=== PATIENT | male | born 1965 | race Two or more races ===

== ENCOUNTER 2020-08-27 06:40 | Outpatient (CLI) | payer OTHER | END 2020-08-27 23:59 | disposition home or self-care (01) | LOC: EDBD 06:40 → LAB 06:40 | PROVIDERS: ATTEND Orthopaedic Surgery | DX: Z01.812 Encounter for preprocedural laboratory examination (principal); Z20.822 Contact with and (suspected) exposure to COVID-19; M75.122 Complete rotator cuff tear or rupture of left shoulder, not specified as traumatic ==

== ENCOUNTER 2020-08-28 10:12 | Outpatient (CLI) | payer OTHER ==
[2020-08-28 10:41] LABS: BASOPHILS % (AUTO) 0.4 % (0.0-2.0); EOSINOPHILS # (AUTO) 0.1 K/uL (0.0-0.7); EOSINOPHILS % (AUTO) 1.1 % (0.0-7.0); HEMATOCRIT 46.1 % (36.7-47.1); HEMOGLOBIN 16.1 g/dL (12.5-16.3); LYMPHOCYTES # (AUTO) 3.3 K/uL (20.0-40.0); LYMPHOCYTES % (AUTO) 29.9 % (20.5-51.5); MEAN CORPUSCULAR HEMOGLOBIN 30.2 uug (23.8-33.4); MEAN CORPUSCULAR HGB CONC 35 g/dL (32.5-36.3); MEAN CORPUSCULAR VOLUME 86.6 fL (73.0-96.2); MONOCYTES # (AUTO) 0.8 K/uL (2.0-10.0); MONOCYTES % (AUTO) 7.5 % (0.0-11.0); NEUTROPHILS # (AUTO) 6.8 K/uL (1.8-8.9); NEUTROPHILS % (AUTO) 61.1 % (38.5-71.5); PLATELET COUNT (AUTO) 274 K/uL (152-348); RED BLOOD CELL COUNT(AUTO) 5.32 MIL/uL (4.06-5.63); WHITE BLOOD COUNT (AUTO) 11.1 K/uL (3.6-10.2)
[2020-08-28 10:50] LABS: *BILIRUBIN,URIN NEGATIVE (NEGATIVE); *CLARITY,URINE CLEAR (CLEAR); *COLOR,URINE YELLOW (YELLOW); *KETONES,URINE NEGATIVE (NEGATIVE); *UROBILINOGEN,URINE 0.2 E.U./dl (NORMAL); LEUKOCYTE ESTERASE ,URINE NEGATIVE (NEGATIVE); NITRITE, URINE NEGATIVE (NEGATIVE); UGLUCOSE NEGATIVE (NEGATIVE)
[2020-08-28 10:54] LABS: *BLOOD, URINE TRACE (NEGATIVE)
[2020-08-28 10:54] LABS: BILIRUBIN,TOTAL 0.4 mg/dL (0.2-1.0); POTASSIUM 3.5 mmol/L (3.5-5.1); TOTAL PROTEIN, SERUM 8.2 g/dL (6.4-8.2)
[2020-08-28 13:42] LABS: BACTERIA,URINE NONE SEEN /HPF (NONE SEEN); RBC,URINE 0-3 /HPF (0-3); SQUAMOUS EPITHELIAL CELL,UR NONE SEEN /HPF (NONE SEEN); WBC,URINE 0-3 /HPF (0-3)
== END 2020-08-28 23:59 | disposition home or self-care (01) ==
LOC: EDBD → LAB 10:12
PROVIDERS: ATTEND Internal Medicine
DX: Z01.818 Encounter for other preprocedural examination (principal); M75.122 Complete rotator cuff tear or rupture of left shoulder, not specified as traumatic; M19.012 Primary osteoarthritis, left shoulder; I10 Essential (primary) hypertension; E66.01 Morbid (severe) obesity due to excess calories
CPT/HCPCS: 36415; 71045; 85025; 85730; 93005; A4663

== ENCOUNTER 2020-08-30 06:13 | Day surgery (SDC) | payer OTHER ==
[2020-08-30] MEDS ORDERED: GLYCOPYRROLATE 0.2 MG/ML VIAL IJ ONE (06:14)
[2020-08-30] MEDS ORDERED: NEOSTIGMINE METHYLSULFATE 10 MG/10 ML VIAL IM ONE (06:14)
[2020-08-30] MEDS ORDERED: ONDANSETRON 4 MG/2 ML VIAL IV ONE (06:14)
[2020-08-30] MEDS ORDERED: PROPOFOL 200 MG/20 ML BOTTLE IV ONE (06:14)
[2020-08-30] MEDS ORDERED: LIDOCAINE-MPF 2% 5 ML VIAL IJ ONE (06:14)
[2020-08-30] MEDS ORDERED: CEFAZOLIN 1 G VIAL IM ONE (06:14)
[2020-08-30] MEDS ORDERED: EPHEDRINE SULFATE 50 MG/ML AMPUL IM ONE (06:14)
[2020-08-30] MEDS ORDERED: METOCLOPRAMIDE HCL 10 MG/2 ML VIAL IV ONE (06:14)
[2020-08-30] MEDS ORDERED: MIDAZOLAM HCL 2 MG/2 ML VIAL ONE (07:17)
[2020-08-30] MEDS ORDERED: FENTANYL CITRATE 250 MCG/5 ML AMPUL ONE (07:18)
[2020-08-30] MEDS ORDERED: ROCURONIUM BROMIDE 50 MG/5 ML VIAL ONE (07:19)
[2020-08-30] MEDS ORDERED: HYDROMORPHONE 2 MG/1 ML DISP.SYRIN ONE (07:19)
[2020-08-30] MEDS ORDERED: BUPIVACAINE/EPI PF 0.5% 10 ML VIAL ONE (07:54)
[2020-08-30] MEDS ORDERED: POLYMYXIN B SULFATE 500,000 UNITS, BACITRACIN 50,000 UNITS, NORMAL SALINE 20 ML MC ONE (08:00)
[2020-08-30] MEDS ORDERED: FENTANYL CITRATE 100 MCG/2 ML AMPUL ONE (11:33)
[2020-08-30] MEDS ORDERED: TRAMADOL HCL 50 MG TABLET ONE (13:21)
== END 2020-08-30 14:25 | disposition home or self-care (01) ==
LOC: EDBD → DS 06:13
PROVIDERS: ATTEND Orthopaedic Surgery
DX: M75.102 Unspecified rotator cuff tear or rupture of left shoulder, not specified as traumatic (principal); M75.42 Impingement syndrome of left shoulder; M19.012 Primary osteoarthritis, left shoulder; I10 Essential (primary) hypertension; Z79.899 Other long term (current) drug therapy; Z98.890 Other specified postprocedural states
CPT/HCPCS: 23120; 23410; 23415; 23420; C1713; J0690; J1170; J2250; J2405; J2765; J3010 ×2; J3490 ×7; A4649; J7030

== ENCOUNTER 2020-10-11 11:49 | Inpatient (IN) | payer OTHER ==
[~2020-10-11] VITALS: Ht 162.6 cm; Wt 117.9 kg
--- NOTE | 2020-10-11 12:18 | NUR ---
at bedside for assessment
[2020-10-11] MEDS ORDERED: VANCOMYCIN 1G/D5W 200 ML PIGGYBACK IV ONE (12:30)
[2020-10-11] MEDS ORDERED: IV NS 1000 ML 1,000 ML IV ONE (12:30)
[2020-10-11] MEDS ORDERED: MORPHINE SULFATE 4 MG/1 ML DISP.SYRIN IV ONE (12:30)
[2020-10-11] MEDS ORDERED: PIPERACILLIN SODIUM/TAZOBACTAM 3.375 G in IV DEXTROSE 5% 50 ML IV ONE (12:30)
[2020-10-11] MEDS ORDERED: MORPHINE SULFATE 4 MG/1 ML DISP.SYRIN ONE (12:41)
[2020-10-11] MEDS ORDERED: VANCOMYCIN IV 200 ML ONE (12:41)
[2020-10-11] MEDS ORDERED: PIPERACILLIN/TAZOBACTAM/D5W 50 ML IV ONE (12:41)
[2020-10-11] MEDS ORDERED: IOHEXOL 300MG/ML 100 ML INFUS..BTL ONE (12:44)
[2020-10-11] MEDS ORDERED: IV NORMAL SALINE 250 ML IV ONE (12:44)
[2020-10-11] MEDS ORDERED: SWABABLE VALVE TRANSFER SET EA MC ONE (12:44)
--- NOTE | 2020-10-11 13:11 | NUR ---
IV place in left hand 20 g
[2020-10-11 13:27] LABS: BASOPHILS # (AUTO) 0.2 K/uL (0.0-8.0); BASOPHILS % (AUTO) 1.2 % (0.0-2.0); EOSINOPHILS # (AUTO) 0.2 K/uL (0.0-0.7); EOSINOPHILS % (AUTO) 1.3 % (0.0-7.0); HEMATOCRIT 41.6 % (36.7-47.1); HEMOGLOBIN 14.1 g/dL (12.5-16.3); LYMPHOCYTES % (AUTO) 18.9 % (20.5-51.5); MEAN CORPUSCULAR HEMOGLOBIN 29.3 uug (23.8-33.4); MEAN CORPUSCULAR HGB CONC 34 g/dL (32.5-36.3); MEAN CORPUSCULAR VOLUME 86.6 fL (73.0-96.2); MONOCYTES # (AUTO) 1.4 K/uL (2.0-10.0); MONOCYTES % (AUTO) 8.7 % (0.0-11.0); NEUTROPHILS # (AUTO) 11.3 K/uL (1.8-8.9); NEUTROPHILS % (AUTO) 69.9 % (38.5-71.5); PLATELET COUNT (AUTO) 343 K/uL (152-348); RED BLOOD CELL COUNT(AUTO) 4.81 MIL/uL (4.06-5.63); WHITE BLOOD COUNT (AUTO) 16.2 K/uL (3.6-10.2)
--- NOTE | 2020-10-11 13:28 | NUR ---
Patient taken to CT at this time
[2020-10-11 13:37] LABS: CREATININE 0.8 mg/dL (0.6-1.3); POTASSIUM 3.1 mmol/L (3.5-5.1)
[2020-10-11] MEDS ORDERED: POTASSIUM CHLORIDE 20 MEQ TAB.PRT.SR PO ONE (13:45)
--- NOTE | 2020-10-11 14:25 | NUR ---
Called Dr.AbramsSТатьяна per request, per office staff is out of the office today and there is no one covering for him. notified.
[2020-10-11] MEDS ORDERED: POTASSIUM CHLORIDE 20 MEQ TAB.PRT.SR ONE (14:29)
--- NOTE | 2020-10-11 14:30 | NUR ---
spoke with via telephone.
--- NOTE | 2020-10-11 14:34 | NUR ---
[facility] called per request.
--- NOTE | 2020-10-11 14:40 | NUR ---
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
[2020-10-11] MEDS ORDERED: Z GUARD REMEDY PASTE 57 GM TUBE TOP PRN (15:30)
[2020-10-11] MEDS ORDERED: MAGNESIUM HYDROXIDE 30 ML LIQUID UDC PO PRN (15:30)
[2020-10-11] MEDS ORDERED: ONDANSETRON 4 MG/2 ML VIAL IV PRN (15:30)
--- NOTE | 2020-10-11 16:39 | NUR ---
report given to Eileen BELLAMY from [facility]
--- NOTE | 2020-10-11 16:40 | NUR ---
Received report from Lashonda ZABALA RN.
--- NOTE | 2020-10-11 17:30 | NUR ---
Pt. admitted to med-surg , under care of GLENN Low Belongs List completed and all sent with patient, no signs of acute distress noted
--- NOTE | 2020-10-11 17:40 | NUR ---
pt arrived on unit, a/ox4, on room air, no signs of distress, pt reports pain on the left shoulder 09/21, medications given as ordered. pt has surgical wound with redness on left shoulder from previous surgery 2 weeks ago. pt is Thai speaking only, pt is ambulatory, BRP, covid rapid negative 10/11/20. pt has IV access on the right hand 20g saline lock. pt given in ER: 2mg morphine, 1g Vanco, 40meq K, 1L fluids. Bed in low and locked position, call light within reach.
[2020-10-11 17:46] VITALS: BP 171/97
[2020-10-11] MEDS: HYDROCODONE/APAP 5-325MG TABLET PO PRN (18:34)
--- NOTE | 2020-10-11 19:20 | NUR ---
Received pt sitting on a chair, A&Ox4, verbally responsive. Pt is Ecuadorean speaking. On room air, no s/s of acute distress, complained of pain on L shoulder but bearable. Safety measures initiated, call light within reach, will continue to monitor.
[2020-10-11] MEDS: IV NS 1000 ML 1,000 ML IV PRN (20:05)
[2020-10-11 20:16] VITALS: BP 161/89
[2020-10-11] MEDS: CLONIDINE HCL 0.1 MG TABLET PO PRN (20:18)
[2020-10-11] MEDS: VANCOMYCIN IV 1,000 MG in IV DEXTROSE 5% 250 ML IV SCH (20:18)
[2020-10-11] MEDS: CEFEPIME HCL 2 G in IV DEXTROSE 5% 100 ML IV SCH (22:43)
[2020-10-12] MEDS: ACETAMINOPHEN 325 MG TABLET PO PRN ×2 (02:18→20:26)
[2020-10-12] MEDS: VANCOMYCIN IV 1,000 MG in IV DEXTROSE 5% 250 ML IV SCH ×6 (04:19→23:56)
[2020-10-12 04:28] VITALS: BP 155/105
[2020-10-12] MEDS: CEFEPIME HCL 2 G in IV DEXTROSE 5% 100 ML IV SCH ×3 (05:57→21:48)
[2020-10-12] MEDS: PANTOPRAZOLE SODIUM 40 MG TABLET.DR PO SCH (06:02)
[2020-10-12 06:15] LABS: BASOPHILS # (AUTO) 0.1 K/uL (0.0-8.0); BASOPHILS % (AUTO) 0.4 % (0.0-2.0); EOSINOPHILS # (AUTO) 0.2 K/uL (0.0-0.7); EOSINOPHILS % (AUTO) 1.2 % (0.0-7.0); HEMOGLOBIN 13.3 g/dL (12.5-16.3); LYMPHOCYTES # (AUTO) 2.7 K/uL (20.0-40.0); MEAN CORPUSCULAR HEMOGLOBIN 28.8 uug (23.8-33.4); MEAN CORPUSCULAR HGB CONC 33 g/dL (32.5-36.3); MONOCYTES % (AUTO) 6.4 % (0.0-11.0); NEUTROPHILS # (AUTO) 11.7 K/uL (1.8-8.9); PLATELET COUNT (AUTO) 330 K/uL (152-348); WHITE BLOOD COUNT (AUTO) 15.7 K/uL (3.6-10.2)
[2020-10-12 06:37] LABS: CREATININE 0.8 mg/dL (0.6-1.3); MAGNESIUM 2.1 mg/dL (1.8-2.4); PHOSPHOROUS 2.7 mg/dL (2.5-4.9); POTASSIUM 3.3 mmol/L (3.5-5.1)
[2020-10-12 06:47] LABS: THYROID STIMULATING HORMONE 0.927 mIU/mL (0.358-3.740)
--- NOTE | 2020-10-12 06:50 | NUR ---
Pt in bed, slept intermittently through the shift, no s/s of acute distress, denies pain or discomfort on left shoulder, antibiotics administered, medications tolerate well. IVF infusing on R forearm. Safety measures in place, call light within reach. All needs attended.
--- NOTE | 2020-10-12 07:30 | NUR ---
START OF SHIFT: received change of shift report, pt in bed resting, pt has c/o left shoulder pain and swelling, pt is a/ox4, on room air, no signs of distress, pt is ambulatory, BRP, IV access on right hand 20g infusing NS at 75cc. no reports of pain at this time, bed in low and locked position, call light within reach, will continue with plan of care.
[2020-10-12] MEDS: CLONIDINE HCL 0.1 MG TABLET PO PRN ×2 (11:09→20:25)
[2020-10-12 11:28] VITALS: BP 164/99
[2020-10-12] MEDS ORDERED: POTASSIUM CHLORIDE 20 MEQ TAB.PRT.SR PO ONE (14:00)
[2020-10-12 15:29] VITALS: BP 166/82
[2020-10-12] MEDS: LISINOPRIL 5 MG TABLET PO SCH (16:49)
[2020-10-12] MEDS: IV NS 1000 ML 1,000 ML IV PRN (16:50)
--- NOTE | 2020-10-12 18:59 | NUR ---
END OF SHIFT: pt in chair watching tv, a/o x4, left should abscess with puss, covered with gauze, culture already sent to lab. pt on room air, no signs of distress, no reports of pain at this time, pt is Turkmen speaking, pt is ambulatory, PICC line on the right side double lumen. IVF infusing Vanco at this time, to be followed by NS at 75cc. call light within reach will endorse to oncoming nurse,.
--- NOTE | 2020-10-12 20:25 | NUR ---
Patient has elevated BP 188/86, temp 100.4 complain of mild pain on Left shoulder. Patient given clonidine 0.1mg po plus Tylenol 650mg po for pain, and low grade temp, cont to monitor.
[2020-10-12 20:27] VITALS: BP 188/106
[2020-10-13] VITALS (8 sets, daily range): BP systolic 138–209; BP diastolic 80–130
--- NOTE | 2020-10-13 00:21 | NUR ---
Patient alert oriented, denies pain at this time, current BP 138/87, temp 98.7 orally, patient asleep but easily arousable, cont to monitor.
--- NOTE | 2020-10-13 00:30 | NUR ---
Patient left shoulder abcess has moderate amount of yellow drainage noted, dressing was changed, no complain of pain, cont to monitor.
[2020-10-13] MEDS: ACETAMINOPHEN 325 MG TABLET PO PRN ×2 (03:33→19:43)
[2020-10-13] MEDS: CEFEPIME HCL 2 G in IV DEXTROSE 5% 100 ML IV SCH ×3 (05:07→21:41)
[2020-10-13] MEDS: PANTOPRAZOLE SODIUM 40 MG TABLET.DR PO SCH (06:28)
[2020-10-13 06:40] LABS: BASOPHILS # (AUTO) 0.1 K/uL (0.0-8.0); BASOPHILS % (AUTO) 0.4 % (0.0-2.0); EOSINOPHILS # (AUTO) 0.2 K/uL (0.0-0.7); EOSINOPHILS % (AUTO) 1.6 % (0.0-7.0); HEMATOCRIT 40.5 % (36.7-47.1); HEMOGLOBIN 13.7 g/dL (12.5-16.3); LYMPHOCYTES # (AUTO) 2.6 K/uL (20.0-40.0); LYMPHOCYTES % (AUTO) 19.4 % (20.5-51.5); MEAN CORPUSCULAR HEMOGLOBIN 29.5 uug (23.8-33.4); MEAN CORPUSCULAR HGB CONC 34 g/dL (32.5-36.3); MEAN CORPUSCULAR VOLUME 87.1 fL (73.0-96.2); MONOCYTES % (AUTO) 7.2 % (0.0-11.0); NEUTROPHILS # (AUTO) 9.6 K/uL (1.8-8.9); NEUTROPHILS % (AUTO) 71.4 % (38.5-71.5); PLATELET COUNT (AUTO) 328 K/uL (152-348); RED BLOOD CELL COUNT(AUTO) 4.66 MIL/uL (4.06-5.63); WHITE BLOOD COUNT (AUTO) 13.4 K/uL (3.6-10.2)
[2020-10-13] MEDS: CLONIDINE HCL 0.1 MG TABLET PO PRN ×3 (06:48→23:29)
--- NOTE | 2020-10-13 06:54 | NUR ---
Patient dressing done again on left shoulder abscess due moderate to large drainage. Patient given prn clonidine 0.1mg for elevated BP 153/89, as ordered, vanco med not given yet due trough result not ready yet, endorse to AM nurse.Patient denies pain at this time.
[2020-10-13 07:02] LABS: CREATININE 0.8 mg/dL (0.6-1.3); MAGNESIUM 2.2 mg/dL (1.8-2.4); PHOSPHOROUS 2.9 mg/dL (2.5-4.9); POTASSIUM 3.3 mmol/L (3.5-5.1)
[2020-10-13] MEDS: LISINOPRIL 5 MG TABLET PO SCH (08:09)
[2020-10-13] MEDS: VANCOMYCIN IV 1,000 MG in IV DEXTROSE 5% 250 ML IV SCH ×3 (08:09→19:28)
[2020-10-13] MEDS ORDERED: LISINOPRIL 5 MG TABLET PO SCH (09:00)
[2020-10-13] MEDS ORDERED: LISINOPRIL 5 MG TABLET PO ONE (09:00)
[2020-10-13] MEDS ORDERED: LISINOPRIL 10 MG TABLET PO SCH (09:00)
[2020-10-13] MEDS ORDERED: POTASSIUM CHLORIDE 20 MEQ TAB.PRT.SR PO ONE (09:15)
--- NOTE | 2020-10-13 10:00 | NUR ---
@800 Pt's bp elevated Justine QUIROZ hospitalist here to see pt and saw trends of vs. New order received to give additional b/p meds given. pt remains asymptomatic with elevated b/p - no c/o pain, calm and not anxious. will continue monitor patient. Pt denies any diarrhea. Educated pt benefits of probiotics.
--- NOTE | 2020-10-13 13:40 | NUR ---
DR. ALBERTO CALLED AND BRIEF REPORT GIVEN OF PATIENT'S CONDITION, INCLUDING PURULENT DRAINAGE OF PUS FROM LEFT SHOULDER WOUND. PRILIMINARY RESULTS OF WOUND CULTURE ALSO GIVEN. NO OEDERS.
[2020-10-13] MEDS: IV NS 1000 ML 1,000 ML IV PRN (17:56)
--- NOTE | 2020-10-13 18:50 | NUR ---
b/p 160/80- hr 85 pt remain asymptomatic. pt denies any c/o pain. clonodine given 3 hrs ago somewhat effective. will need to continue and monitor pts b/p. Pt ambulatory. Call light is within reach.
--- NOTE | 2020-10-13 19:00 | NUR ---
RECEIVED PT AWAKE, ALERT AND ORIENTEDX4. PT IN NO ACUTE DISTRESS. SAFETY AND COMFORT PROVIDED. IV INTACT. WILL CONTINUE TO MONITOR.
[2020-10-13] MEDS: HYDROCODONE/APAP 5-325MG TABLET PO PRN (20:48)
--- NOTE | 2020-10-13 23:10 | NUR ---
TYLENOL PRN 650 MG GIVEN AT 1942 FOR 99.6 TEMPERATURE AFTER AN HOUR TEMPERATURE BECOME 99.0. PT AFEBRILE. NORCO PRN GIVEN AT 2047H FOR PAIN. PT TOLERATED IT WELL. SAFETY AND COMFORT PROVIDED. BLOOD PRESSURE OF THE PT TRENDING DOWN.WILL CONTINUE TO MONITOR.
--- NOTE | 2020-10-13 23:29 | NUR ---
CATAPRES 0.1MG PRN GIVEN FOR . PT ASYMPTOMATIC. WILL CONTINUE TO MONITOR.
[2020-10-14] MEDS: VANCOMYCIN IV 1,000 MG in IV DEXTROSE 5% 250 ML IV SCH ×4 (01:05→19:53)
[2020-10-14 02:00] VITALS: BP 159/82
--- NOTE | 2020-10-14 02:00 | NUR ---
RECHCECKED BP. BP RESULT WAS 159/82. WILL [id number] TO MONITOR.
[2020-10-14 04:00] VITALS: BP 157/108
[2020-10-14] MEDS: HYDROCODONE/APAP 5-325MG TABLET PO PRN ×2 (04:26→11:23)
[2020-10-14] MEDS: CEFEPIME HCL 2 G in IV DEXTROSE 5% 100 ML IV SCH (05:58)
[2020-10-14] MEDS: PANTOPRAZOLE SODIUM 40 MG TABLET.DR PO SCH (06:01)
--- NOTE | 2020-10-14 06:29 | NUR ---
PT SLEPT INTERMITTENTLY. PT IN NO ACUTE DISTRESS. PT GIVEN NORCO AT 0426 FOR LEFT SHOULDER PAIN. PT TOLERATED IT WELL. PRESCRIBED MEDICATION GIVEN AND PT TOLERATED IT WELL. BLOOD PRESSURE OF THE PT TRENDING DOWN. PT ASYMPTOMATIC. SAFETY AND COMFORT PROVIDED. WILL ENDORSE TO INCOMING NURSE FOR CONTINUITY OF CARE.
--- NOTE | 2020-10-14 07:30 | NUR ---
Received pt awake and watching, sitting in bed. No resp distress. CHIQUIS picc line intact and patient. Iv hydration tolerated. Dressing on left shoulder intact, no bleeding noted. Minimal movements on affected arm noted denies pain. Patient is comfortable. Will continue to monitor.
[2020-10-14 07:35] LABS: BASOPHILS # (AUTO) 0.1 K/uL (0.0-8.0); BASOPHILS % (AUTO) 0.6 % (0.0-2.0); EOSINOPHILS # (AUTO) 0.2 K/uL (0.0-0.7); EOSINOPHILS % (AUTO) 1.9 % (0.0-7.0); HEMATOCRIT 40.8 % (36.7-47.1); HEMOGLOBIN 13.9 g/dL (12.5-16.3); LYMPHOCYTES # (AUTO) 2.6 K/uL (20.0-40.0); LYMPHOCYTES % (AUTO) 20.3 % (20.5-51.5); MEAN CORPUSCULAR HEMOGLOBIN 29.7 uug (23.8-33.4); MEAN CORPUSCULAR HGB CONC 34 g/dL (32.5-36.3); MEAN CORPUSCULAR VOLUME 87.4 fL (73.0-96.2); MONOCYTES % (AUTO) 7.7 % (0.0-11.0); NEUTROPHILS % (AUTO) 69.5 % (38.5-71.5); PLATELET COUNT (AUTO) 384 K/uL (152-348); RED BLOOD CELL COUNT(AUTO) 4.67 MIL/uL (4.06-5.63)
[2020-10-14 07:49] LABS: CREATININE 0.9 mg/dL (0.6-1.3); PHOSPHOROUS 2.9 mg/dL (2.5-4.9); POTASSIUM 3.2 mmol/L (3.5-5.1)
[2020-10-14] MEDS: ACETAMINOPHEN 325 MG TABLET PO PRN ×2 (08:18→20:07)
[2020-10-14] MEDS ORDERED: LISINOPRIL 10 MG TABLET PO SCH (09:00)
[2020-10-14] MEDS ORDERED: POTASSIUM CHLORIDE 20 MEQ TAB.PRT.SR PO ONE (10:00)
[2020-10-14] MEDS: CLONIDINE HCL 0.1 MG TABLET PO PRN ×2 (10:45→20:05)
[2020-10-14 11:42] VITALS: BP 179/104
--- NOTE | 2020-10-14 12:36 | NUR ---
GLENN Low made aware of bp readings this morning with new order to increase Lisinopril to 20mg QD noted and carried out. Patient made aware and agreed.
[2020-10-14] MEDS ORDERED: CEFTRIAXONE 1 G in IV DEXTROSE 5% 50 ML IV SCH (14:00)
[2020-10-14 16:00] VITALS: BP 179/124
--- NOTE | 2020-10-14 17:07 | NUR ---
GLENN Low made aware of BP this afternoon with order for hydralazine 5mg q4prn for sbp>160 noted and carried out.
[2020-10-14] MEDS: hydrALAZINE HCL 20 MG/1 ML VIAL IV PRN ×2 (17:16→21:25)
--- NOTE | 2020-10-14 18:05 | NUR ---
Seen by Dr. Abdi and dressing on left shoulder changed. Patient tolerated procedure. Denies pain. Able to make minimal movements. Will continue to monitor.
[2020-10-14] MEDS: IV NS 1000 ML 1,000 ML IV PRN (18:49)
--- NOTE | 2020-10-14 19:02 | NUR ---
Alert and oriented able to make needs known in korean. Denies pain. In no acute distress. On IV Vancomycin and Rocephin. No adverse reaction noted. Visited by this afternoon. No complaints. Needs attended. Kept comfortable.
--- NOTE | 2020-10-14 19:30 | NUR ---
RECEIVED PT AWAKE, ALERT AND ORIENTEDX4. PT IN NO ACUTE DISTRESS. IV INTACT. SAFETY AND COMFORT PROVIDED. WILL CONTINUE TO MONITOR.
[2020-10-14 20:00] VITALS: BP 182/102
--- NOTE | 2020-10-14 20:05 | NUR ---
CATAPRES PRN 0.1MG GIVEN AT 2005H FOR 182/102 BLOOD PRESSURE AND TYLENOL PRN FOR 2007 FOR HEADACHE. SAFETY AND COMFORT PROVIDED. WILL CONTINUE TO MONITOR.
[2020-10-14 21:21] VITALS: BP 175/101
--- NOTE | 2020-10-14 21:43 | NUR ---
HANDS OFF REPORT TO ERICA BELLAMY. PT STABLE AND IN NO ACUTE DISTRESS. PT WAS GIVEN APRESOLINE IV PRN 5MG FOR 175/101. PT ASYMPTOMATIC. SAFETY AND COMFORT PROVIDED. WILL CONTINUE TO MONITOR.
[2020-10-14] MEDS ORDERED: AMLODIPINE 5 MG TABLET PO SCH (21:45)
--- NOTE | 2020-10-14 21:45 | NUR ---
Received report from Tere BELLAMY. Received pt sitting on a chair, A&Ox4, verbally responsive. No s/s of respiratory distress, denies any pain or discomfort. IVF infusing well. Dressing on L shoulder intact. Safety measures initiated, call light within reach, will continue to monitor.
[2020-10-15 00:18] VITALS: BP 174/112
[2020-10-15] MEDS: hydrALAZINE HCL 20 MG/1 ML VIAL IV PRN (03:28)
[2020-10-15] MEDS: ACETAMINOPHEN 325 MG TABLET PO PRN ×2 (03:29→10:23)
[2020-10-15] MEDS: HYDROCODONE/APAP 5-325MG TABLET PO PRN ×2 (04:25→16:41)
[2020-10-15 04:32] VITALS: BP 172/95
[2020-10-15 06:00] VITALS: BP 158/99
[2020-10-15] MEDS: PANTOPRAZOLE SODIUM 40 MG TABLET.DR PO SCH (06:00)
--- NOTE | 2020-10-15 06:25 | NUR ---
Pt slept intermittently through the night, no s/s of respiratory distress. BP monitored closely. PRN BP medications administered as ordered. Latest BP is 158/99. Pt denies pain at this time. Safety measures in place, call light within reach.
[2020-10-15 07:02] LABS: BASOPHILS # (AUTO) 0.1 K/uL (0.0-8.0); BASOPHILS % (AUTO) 0.4 % (0.0-2.0); EOSINOPHILS # (AUTO) 0.2 K/uL (0.0-0.7); EOSINOPHILS % (AUTO) 1.4 % (0.0-7.0); HEMATOCRIT 42.5 % (36.7-47.1); HEMOGLOBIN 14.3 g/dL (12.5-16.3); LYMPHOCYTES # (AUTO) 2.4 K/uL (20.0-40.0); LYMPHOCYTES % (AUTO) 17.7 % (20.5-51.5); MEAN CORPUSCULAR HEMOGLOBIN 29.2 uug (23.8-33.4); MEAN CORPUSCULAR HGB CONC 34 g/dL (32.5-36.3); MEAN CORPUSCULAR VOLUME 86.8 fL (73.0-96.2); MONOCYTES % (AUTO) 7.4 % (0.0-11.0); NEUTROPHILS # (AUTO) 9.9 K/uL (1.8-8.9); NEUTROPHILS % (AUTO) 73.1 % (38.5-71.5); PLATELET COUNT (AUTO) 403 K/uL (152-348); WHITE BLOOD COUNT (AUTO) 13.6 K/uL (3.6-10.2)
[2020-10-15 07:25] LABS: CREATININE 0.8 mg/dL (0.6-1.3); MAGNESIUM 2.1 mg/dL (1.8-2.4); POTASSIUM 3.6 mmol/L (3.5-5.1)
--- NOTE | 2020-10-15 07:30 | NUR ---
Received patient in bed awake, alert and oriented times 4. No sign of distress noted. Pt is Czech speaking. Pt has a right upper arm PICC line double lumen. Abscess on the left shoulder, pictures are in chart but no orders for wound dressing. Will follow up with surgeon Trinidad. Pt denies any pain or SOB. Safety measure are in place. Will continue to monitor.
[2020-10-15] MEDS ORDERED: POTASSIUM CHLORIDE 20 MEQ TAB.PRT.SR PO ONE (07:45)
[2020-10-15] MEDS ORDERED: AMLODIPINE 5 MG TABLET PO SCH (09:00)
[2020-10-15] MEDS: LISINOPRIL 20 MG TABLET PO SCH (09:10)
[2020-10-15] MEDS: AMLODIPINE 10 MG TABLET PO SCH (09:10)
[2020-10-15] MEDS: IV NS 1000 ML 1,000 ML IV PRN (10:23)
[2020-10-15 11:20] VITALS: BP 159/91
--- NOTE | 2020-10-15 13:15 | NUR ---
Spoke with Tramaine Squires, gave telephone order for cleaning Abscess, BID clean with NS, and apply 4x4 gauge. Will continue to monitor.
[2020-10-15] MEDS ORDERED: CEFTRIAXONE 2 G in IV DEXTROSE 5% 50 ML IV SCH (14:00)
[2020-10-15 15:08] VITALS: BP 158/92
--- NOTE | 2020-10-15 19:00 | NUR ---
Patient left sitting on the bed. Gave all medications as ordered. Dressing change completed as ordered. Safety precautions are in place. Will endorse to oncoming nurse.
--- NOTE | 2020-10-15 19:45 | NUR ---
Received pt sitting in bed, verbally responsive, very pleasant. Denies any pain or discomfort. No s/s of respiratory distress. Dressing on L shoulder intact and no signs of soilage. IVF infusing well. Safety measures in place, call light within reach, will continue to monitor.
[2020-10-15 20:00] VITALS: BP 163/99
[2020-10-15] MEDS: CLONIDINE HCL 0.1 MG TABLET PO PRN (20:23)
[2020-10-16] MEDS: HYDROCODONE/APAP 5-325MG TABLET PO PRN ×2 (00:35→06:01)
[2020-10-16] MEDS: IV NS 1000 ML 1,000 ML IV PRN (01:42)
[2020-10-16 04:20] VITALS: BP 177/111
[2020-10-16] MEDS: CLONIDINE HCL 0.1 MG TABLET PO PRN (04:23)
[2020-10-16] MEDS: PANTOPRAZOLE SODIUM 40 MG TABLET.DR PO SCH (06:02)
[2020-10-16] MEDS: hydrALAZINE HCL 20 MG/1 ML VIAL IV PRN (06:03)
--- NOTE | 2020-10-16 06:39 | NUR ---
Pt complained of pain on L shoulder, pain medications administered PRN. Wound has yellowish drainage. Wound dressing done. BP monitored closely, BP medications administered PRN. Tolerated medications well. No s/s of respiratory distress. IVF infusing well. will endorse to incoming nurse.
--- NOTE | 2020-10-16 07:30 | NUR ---
Received patient in bed awake alert and oriented times 4. No sign of distress noted. Patient is afebrile, dressing on left shoulder. Pt denies pain at this time. Pt has a PICC which running NS at 75mls per hour. Double lumen. Safety precautions implemented, call light within reach and belonging is within pt.'s reach. Will continue to follow.
[2020-10-16] MEDS: AMLODIPINE 10 MG TABLET PO SCH (08:57)
[2020-10-16] MEDS: LISINOPRIL 20 MG TABLET PO SCH ×2 (08:58→17:05)
[2020-10-16 11:16] VITALS: BP 159/80
[2020-10-16] MEDS: hydrALAZINE HCL 50 MG TABLET PO SCH ×2 (12:01→20:42)
[2020-10-16] MEDS: CEFTRIAXONE 2 G in IV DEXTROSE 5% 100 ML IV SCH (14:26)
[2020-10-16] MEDS: ACETAMINOPHEN 325 MG TABLET PO PRN (14:35)
[2020-10-16 15:31] VITALS: BP 135/77
--- NOTE | 2020-10-16 18:33 | NUR ---
Left patient up in chair. all medications provided as ordered. no complains of any pain. wound care provided as ordered. will endorse to oncoming shift.
[2020-10-16 20:00] VITALS: BP 154/84
[2020-10-17] MEDS: HYDROCODONE/APAP 5-325MG TABLET PO PRN (00:45)
[2020-10-17 04:00] VITALS: BP 123/66
--- NOTE | 2020-10-17 05:02 | NUR ---
Pt slept throughout the night. Denies pain or SOB at this time. Wound dressing on left shoulder changed per orders. Bed is locked and in lowest position, call light within reach. Pt has steady gait and is able to ambulate without assistance to restroom. No other issues or concerns at this time, will endorse to day shift.
[2020-10-17 06:07] LABS: BASOPHILS % (AUTO) 0.4 % (0.0-2.0); EOSINOPHILS # (AUTO) 0.2 K/uL (0.0-0.7); EOSINOPHILS % (AUTO) 1.5 % (0.0-7.0); HEMATOCRIT 42.4 % (36.7-47.1); HEMOGLOBIN 14.1 g/dL (12.5-16.3); LYMPHOCYTES # (AUTO) 2.5 K/uL (20.0-40.0); LYMPHOCYTES % (AUTO) 21.3 % (20.5-51.5); MEAN CORPUSCULAR HEMOGLOBIN 29.2 uug (23.8-33.4); MEAN CORPUSCULAR HGB CONC 33 g/dL (32.5-36.3); MEAN CORPUSCULAR VOLUME 87.5 fL (73.0-96.2); MONOCYTES % (AUTO) 8.4 % (0.0-11.0); NEUTROPHILS # (AUTO) 7.9 K/uL (1.8-8.9); NEUTROPHILS % (AUTO) 68.4 % (38.5-71.5); PLATELET COUNT (AUTO) 383 K/uL (152-348); RED BLOOD CELL COUNT(AUTO) 4.85 MIL/uL (4.06-5.63); WHITE BLOOD COUNT (AUTO) 11.6 K/uL (3.6-10.2)
[2020-10-17 06:13] LABS: CREATININE 0.8 mg/dL (0.6-1.3); POTASSIUM 3.5 mmol/L (3.5-5.1)
[2020-10-17] MEDS: PANTOPRAZOLE SODIUM 40 MG TABLET.DR PO SCH (06:37)
--- NOTE | 2020-10-17 07:30 | NUR ---
Received awake and watching Tv. Alert and oriented. Denies pain. No respiratory distress. CHIQUIS picc line intact. Dressing on left shoulder intact. No bleeding noted. Patient is comfortable. Call light in reach. Will continue to monitor.
[2020-10-17] MEDS ORDERED: POTASSIUM CHLORIDE 20 MEQ POWDER PACKET PO ONE (07:45)
[2020-10-17] MEDS ORDERED: POTASSIUM CHLORIDE 20 MEQ TAB.PRT.SR PO ONE (07:45)
[2020-10-17] MEDS: AMLODIPINE 10 MG TABLET PO SCH (08:36)
[2020-10-17] MEDS: hydrALAZINE HCL 50 MG TABLET PO SCH (08:36)
[2020-10-17] MEDS: LISINOPRIL 20 MG TABLET PO SCH ×2 (08:36→17:22)
[2020-10-17 11:39] VITALS: BP 141/88
[2020-10-17] MEDS ORDERED: ONDA4TAB5 PO (12:17)
[2020-10-17] MEDS ORDERED: HYDR-3972 PO (12:17)
[2020-10-17] MEDS: CEFTRIAXONE 2 G in IV DEXTROSE 5% 100 ML IV SCH (14:25)
--- NOTE | 2020-10-17 14:43 | NUR ---
SOBIA Cordova aware of patient's dc orders. She said patient's insurance will call him when he gets home to arrange home health. She is also arranging for follow up consult with [facility]. Patient is made aware and agreed.
[2020-10-17 15:49] VITALS: BP 139/88
[2020-10-17 17:22] VITALS: BP 130/82
--- NOTE | 2020-10-17 18:43 | NUR ---
Patient is discharged to home/self care. Alert and oriented, ambulatory able to make needs known. No respiratory distress. Denies pain. Asked if he wanted pain medication before leaving but he refused. SKin check done and pictures put in chart. Sterile dressing changed by RN. Per CM patient will be contacted by his insurance to arrange for home health either tonight or tomorrow. Patient provided an alternative phone number where he can be contacted and was given to Tasha RAMSAY. She said she relayed the number to his insurance and CM already. Patient was given discharge instructions, answered all questions. He was provided address and phone number to [facility] wound center. He said he will call tomorrow morning. Patient was provided medication prescription and was instructed on proper way to take blood pressure before taking blood pressure medications and when to hold it. Patient verbalized understanding. Patient's belongings were inventoried by PR[employer]INCE ARCHIVIST and verified by pt. Patient was appreciative of the care he received. Left the floor ambulatory refused wheelchair, picked up by his in stable condition.
--- NOTE | 2020-10-17 19:09 | NUR ---
Addendum to discharge note: Patient left with right upper arm double lumen picc line. IV is intact and patent flushed prior to discharge. Patient was instructed on how to shower with picc line on informed to keep it dry and he verbalized understanding. Dressing dry and changed.
== END 2020-10-17 16:30 | disposition home or self-care (01) | DRG 863 ==
LOC: ER 11:49 → MEDSURG3 16:43
PROVIDERS: ADMIT Registered Nurse; ATTEND Nurse Practitioner Acute Care
PROC: 02HV33Z Insertion of Infusion Device into Superior Vena Cava, Percutaneous Approach (ICD-10-PCS; principal; 2020-10-12)
PROC: B548ZZA Ultrasonography of Superior Vena Cava, Guidance (ICD-10-PCS; 2020-10-12)
DX: T81.49XA Infection following a procedure, other surgical site, initial encounter (principal); Z68.41 Body mass index [BMI] 40.0-44.9, adult; L03.114 Cellulitis of left upper limb; M86.8X2 Other osteomyelitis, upper arm; L02.414 Cutaneous abscess of left upper limb; E44.1 Mild protein-calorie malnutrition; E66.01 Morbid (severe) obesity due to excess calories; E87.6 Hypokalemia; G47.33 Obstructive sleep apnea (adult) (pediatric); I10 Essential (primary) hypertension; Z83.3 Family history of diabetes mellitus; D72.829 Elevated white blood cell count, unspecified; Y83.8 Other surgical procedures as the cause of abnormal reaction of the patient, or of later complication, without mention of misadventure at the time of the procedure; Y79.8 Miscellaneous orthopedic devices associated with adverse incidents, not elsewhere classified; Y92.89 Other specified places as the place of occurrence of the external cause; S41.002A Unspecified open wound of left shoulder, initial encounter; Z71.3 Dietary counseling and surveillance; E11.69 Type 2 diabetes mellitus with other specified complication; Z20.822 Contact with and (suspected) exposure to COVID-19
CPT/HCPCS: 36415; 36569; 71045; 83605; 83735; 84100; 84443; 85025; 85651; 86140; 87040; 87070; 87077; A4217; A4663; G0378; J0360; J0692; J0696; J2270; J2543; J3370; J7030; J7050; J7060; Q9967

== ENCOUNTER 2020-11-07 08:46 | Emergency (ER) | payer OTHER ==
[~2020-11-07] VITALS: Ht 162.6 cm; Wt 117.9 kg
[~2020-11-07 08:46] MED LIST: HYDR-3972 PO; ONDA4TAB5 PO
--- NOTE | 2020-11-07 09:35 | NUR ---
Per nursing children's lunchroom supervisor PICC line eta 1200.
--- NOTE | 2020-11-07 11:12 | NUR ---
picc line rn at bedside.
--- NOTE | 2020-11-07 11:32 | NUR ---
Patient discharged to home in stable condition. Written and verbal after care instructions given. Patient verbalizes understanding of instructions. Stressed follow up or return to ER for worsening s/s.
[2020-11-07 11:33] VITALS: BP 139/84
== END 2020-11-07 11:34 | disposition home or self-care (01) ==
LOC: ER 08:46
PROC: 05HB33Z Insertion of Infusion Device into Right Basilic Vein, Percutaneous Approach (ICD-10-PCS; principal; 2020-11-07)
DX: T82.524A Displacement of infusion catheter, initial encounter (principal); T81.49XD Infection following a procedure, other surgical site, subsequent encounter; L03.114 Cellulitis of left upper limb
CPT/HCPCS: A4663

== ENCOUNTER 2021-10-18 01:03 | Emergency (ER) | payer SELFPAY ==
[~2021-10-18] VITALS: Ht 177.8 cm; Wt 108.9 kg
--- NOTE | 2021-10-18 01:40 | NUR ---
Dr Nicole into eval patient.
[2021-10-18 01:54] VITALS: BP 158/98
== END 2021-10-18 01:54 | disposition home or self-care (01) ==
LOC: ER 01:03
DX: L98.498 Non-pressure chronic ulcer of skin of other sites with other specified severity (principal); M79.5 Residual foreign body in soft tissue; I10 Essential (primary) hypertension
CPT/HCPCS: A4663